=== PATIENT | female | born 1970 | race Caucasian/White ===

== ENCOUNTER 2019-03-02 07:03 | Day surgery (SDC) | payer OTHER ==
[~2019-03-02 07:03] MED LIST: CEFAZOLIN 2 GM/50 ML (PMX) 50 ML IVPB
[2019-03-02] MEDS: SOD CHLORIDE 0.9% 1,000 ML IV (10:55)
[2019-03-02] MEDS ORDERED: PROPOFOL 20 ML (12:15)
[2019-03-02] MEDS ORDERED: LIDOCAINE 2% (SDV) 5 ML INJ (12:15)
[2019-03-02] MEDS ORDERED: MIDAZOLAM 1 MG/ML 2 ML INJ (12:16)
[2019-03-02] MEDS ORDERED: FAMOTIDINE 20 MG INJ (12:16)
[2019-03-02] MEDS ORDERED: ONDANSETRON 4 MG INJ (12:16)
[2019-03-02] MEDS ORDERED: DEXAMETHASONE 4 MG/ML 5 ML INJ (12:16)
[2019-03-02] MEDS ORDERED: FENTAnyl 50 MCG/ML VIAL (12:16)
[2019-03-02] MEDS ORDERED: CEFAZOLIN 1 GM INJ (12:16)
[2019-03-02] MEDS ORDERED: OXYCODONE/ACETAMINOPHEN (5/325) TAB PO (12:30)
[2019-03-02] MEDS ORDERED: PROCHLORPERAZINE 10 MG INJ IV (12:30)
[2019-03-02] MEDS ORDERED: LABETALOL HCL 20MG INJ IV (12:30)
[2019-03-02] MEDS ORDERED: HYDROmorphONE 1 MG/5 ML IV SYRINGE IV ×3 (12:30)
[2019-03-02] MEDS ORDERED: DIPHENHYDRAMINE 50 MG INJ IV (12:30)
[2019-03-02] MEDS ORDERED: FENTAnyl 50 MCG/ML VIAL IV ×3 (12:30)
[2019-03-02] MEDS ORDERED: EPHEDrine 25 MG/5 ML SYG (12:47)
[2019-03-02] MEDS ORDERED: HYDROmorphONE 2 MG/ML SYG (12:47)
[2019-03-02] MEDS ORDERED: LACTATED RINGER'S 1,000 ML IV (13:00)
[2019-03-02] MEDS ORDERED: HYDROCODONE/APAP (7.5/325) TAB PO (13:30)
[2019-03-02] MEDS: hydrALAzine 20 MG INJ IV (14:08)
[2019-03-02] MEDS: MEPERIDINE 25 MG INJ IV (14:08)
[2019-03-02] MEDS: ONDANSETRON 4 MG INJ IV (14:08)
== END 2019-03-02 16:15 | disposition home or self-care (01) ==
LOC: SDS 07:03
DX: D05.11 Intraductal carcinoma in situ of right breast (principal); I10 Essential (primary) hypertension; E03.9 Hypothyroidism, unspecified
CPT/HCPCS: 19301; 88307

== ENCOUNTER 2019-03-13 17:08 | Emergency (ER) | payer OTHER ==
[2019-03-13] MEDS: CEFTRIAXONE 1 GM INJ IM (19:46)
[2019-03-13] MEDS: TRIMETHOPRIM/SULFAMETHOX (DS) TAB PO (19:46)
[2019-03-13] MEDS: LIDOCAINE 1% (MPF) 5 ML VIAL IM (19:47)
== END 2019-03-13 20:51 | disposition home or self-care (01) ==
LOC: FTE 17:08
DX: T81.31XA Disruption of external operation (surgical) wound, not elsewhere classified, initial encounter (principal); E03.9 Hypothyroidism, unspecified; I10 Essential (primary) hypertension; Y82.8 Other medical devices associated with adverse incidents
CPT/HCPCS: 96372; 99284-25; J0696

== ENCOUNTER 2019-04-30 10:42 | Day surgery (SDC) | payer OTHER ==
[2019-04-30] MEDS: CEFAZOLIN 1 GM/50 ML (PMX) 50 ML IVPB (06:00)
[2019-04-30 11:45] LABS: ADD MAN DIFF? NO
[2019-04-30 11:47] LABS: BASOPHILS % 0.5 % (0.0-2.0); EOSINOPHILS # 0.1 10^3/ul (0.0-0.5); EOSINOPHILS % 1.5 % (0.0-7.0); HEMATOCRIT 36.5 % (37.0-47.0); HEMOGLOBIN 11.5 g/dl (12.0-16.0); LYMPHOCYTES # 1.9 10^3/ul (0.8-2.9); LYMPHOCYTES % 31.5 % (15.0-51.0); MEAN CORPUSCULAR HEMOGLOBIN 24.7 pg (29.0-33.0); MEAN CORPUSCULAR HGB CONC 31.5 g/dl (32.0-37.0); MEAN CORPUSCULAR VOLUME 78.3 fl (82.0-101.0); MEAN PLATELET VOLUME 9.3 fl (7.4-10.4); MONOCYTE # 0.5 10^3/ul (0.3-0.9); MONOCYTES % 8.4 % (0.0-11.0); NEUTROPHIL # 3.5 10^3/ul (1.6-7.5); NEUTROPHILS % 57.8 % (39.0-77.0); PLATELET COUNT 323 10^3/UL (140-415); RED BLOOD COUNT 4.66 10^6/ul (4.20-5.40); RED CELL DISTRIBUTION WIDTH 19.1 % (11.5-14.5)
[2019-04-30] MEDS: SOD CHLORIDE 0.9% 1,000 ML IV (12:02)
[2019-04-30 12:04] LABS: INR 0.96; PARTIAL THROMBOPLASTIN TIME 25.9 Sec (23.0-35.0); PROTIME 12.9 Sec (11.9-14.9)
[2019-04-30 12:05] LABS: ALANINE AMINOTRANSFERASE 35 IU/L (13-69); ALBUMIN 4.2 g/dl (3.3-4.9); ALBUMIN/GLOBULIN RATIO 1.23; ALKALINE PHOSPHATASE 102 IU/L (42-121); ANION GAP 8 (5-13); ASPARTATE AMINO TRANSFERASE 40 IU/L (15-46); BILIRUBIN,INDIRECT 0.6 mg/dl (0-1.1); BILIRUBIN,TOTAL 0.6 mg/dl (0.2-1.3); BLOOD UREA NITROGEN 10 mg/dl (7-20); CALCIUM 9.1 mg/dl (8.4-10.2); CARBON DIOXIDE 28 mmol/L (21-31); CHLORIDE 103 mmol/L (97-110); CREATININE 0.44 mg/dl (0.44-1.00); Estimated GFR > 60 mL/min (>60); GLUCOSE 89 mg/dl (70-220); SODIUM 139 mmol/L (135-144); TOTAL PROTEIN 7.6 g/dl (6.1-8.1)
[2019-04-30 12:09] LABS: POTASSIUM 3.2 mmol/L (3.5-5.1)
[2019-04-30] MEDS ORDERED: LIDOCAINE 2% (SDV) 5 ML INJ (16:21)
[2019-04-30] MEDS ORDERED: FENTAnyl 50 MCG/ML VIAL (16:21)
[2019-04-30] MEDS ORDERED: PROPOFOL 20 ML (16:21)
[2019-04-30] MEDS ORDERED: MIDAZOLAM 1 MG/ML 2 ML INJ (16:21)
[2019-04-30] MEDS: ISOSULFAN BLUE 1% 5 ML INJ SC (16:27)
[2019-04-30] MEDS ORDERED: OXYCODONE/ACETAMINOPHEN (5/325) TAB PO (16:30)
[2019-04-30] MEDS ORDERED: HYDROmorphONE 1 MG/5 ML IV SYRINGE IV ×2 (16:30)
[2019-04-30] MEDS ORDERED: FENTAnyl 50 MCG/ML VIAL IV ×3 (16:30)
[2019-04-30] MEDS ORDERED: ONDANSETRON 4 MG INJ IV (16:30)
[2019-04-30] MEDS ORDERED: DIPHENHYDRAMINE 50 MG INJ IV (16:30)
[2019-04-30] MEDS ORDERED: hydrALAzine 20 MG INJ IV (16:30)
[2019-04-30] MEDS ORDERED: LABETALOL HCL 20MG INJ IV (16:30)
[2019-04-30] MEDS ORDERED: PROCHLORPERAZINE 10 MG INJ IV (16:30)
[2019-04-30] MEDS ORDERED: MEPERIDINE 25 MG INJ IV (16:30)
[2019-04-30] MEDS ORDERED: EPHEDrine 25 MG/5 ML SYG (16:37)
[2019-04-30] MEDS ORDERED: CEFAZOLIN 1 GM INJ (16:37)
[2019-04-30] MEDS ORDERED: DEXAMETHASONE 4 MG/ML 5 ML INJ (16:40)
[2019-04-30] MEDS ORDERED: ONDANSETRON 4 MG INJ (16:40)
[2019-04-30] MEDS ORDERED: FAMOTIDINE 20 MG INJ (16:40)
[2019-04-30] MEDS ORDERED: HYDROmorphONE 2 MG/ML SYG (16:44)
[2019-04-30] MEDS: HYDROmorphONE 1 MG/5 ML IV SYRINGE IV (18:33)
[2019-04-30] MEDS: HYDROCODONE/APAP (7.5/325) TAB PO (18:47)
== END 2019-04-30 19:34 | disposition home or self-care (01) ==
LOC: SDS 10:42
DX: C50.911 Malignant neoplasm of unspecified site of right female breast (principal); D36.0 Benign neoplasm of lymph nodes; I10 Essential (primary) hypertension; E78.5 Hyperlipidemia, unspecified; E03.9 Hypothyroidism, unspecified
CPT/HCPCS: 19301; 80053; 85025; 85610; 85730; 88307; 88331; 88342

== ENCOUNTER 2019-05-17 22:09 | Emergency (ER) | payer OTHER ==
[2019-05-17 22:51] LABS: ADD MAN DIFF? NO
[2019-05-17 22:52] LABS: WHITE BLOOD COUNT 9.5 10^3/ul (4.8-10.8)
[2019-05-17 22:52] LABS: BASOPHILS % 0.4 % (0.0-2.0); EOSINOPHILS # 0.2 10^3/ul (0.0-0.5); EOSINOPHILS % 1.7 % (0.0-7.0); HEMATOCRIT 36.6 % (37.0-47.0); HEMOGLOBIN 11.6 g/dl (12.0-16.0); LYMPHOCYTES # 1.9 10^3/ul (0.8-2.9); LYMPHOCYTES % 20.3 % (15.0-51.0); MEAN CORPUSCULAR HEMOGLOBIN 25.3 pg (29.0-33.0); MEAN CORPUSCULAR HGB CONC 31.7 g/dl (32.0-37.0); MEAN CORPUSCULAR VOLUME 79.7 fl (82.0-101.0); MEAN PLATELET VOLUME 9.2 fl (7.4-10.4); MONOCYTE # 0.9 10^3/ul (0.3-0.9); MONOCYTES % 9.9 % (0.0-11.0); NEUTROPHIL # 6.4 10^3/ul (1.6-7.5); NEUTROPHILS % 67.4 % (39.0-77.0); PLATELET COUNT 339 10^3/UL (140-415); RED BLOOD COUNT 4.59 10^6/ul (4.20-5.40); RED CELL DISTRIBUTION WIDTH 19.1 % (11.5-14.5)
[2019-05-17 23:13] LABS: ANION GAP 8 (5-13); BLOOD UREA NITROGEN 12 mg/dl (7-20); CALCIUM 9.2 mg/dl (8.4-10.2); CARBON DIOXIDE 25 mmol/L (21-31); CHLORIDE 105 mmol/L (97-110); CREATININE 0.65 mg/dl (0.44-1.00); Estimated GFR > 60 mL/min (>60); GLUCOSE 115 mg/dl (70-220); SODIUM 138 mmol/L (135-144)
[2019-05-17 23:15] LABS: POTASSIUM 3.3 mmol/L (3.5-5.1)
== END 2019-05-18 00:10 | disposition home or self-care (01) ==
LOC: E/R 05-18 00:10
DX: L76.22 Postprocedural hemorrhage of skin and subcutaneous tissue following other procedure (principal); E03.9 Hypothyroidism, unspecified; I10 Essential (primary) hypertension; Z85.3 Personal history of malignant neoplasm of breast
CPT/HCPCS: 76642; 80048; 85025; 99284-25